=== PATIENT | male | born 1975 | race Caucasian/White ===

== ENCOUNTER 2025-03-23 18:00 | Emergency (ER) | payer MEDICARE ==
--- NOTE | 2025-03-23 18:52 | ERPHSYRPT ---
- History of Present Illness Patient Subjective Stated Complaint: patient dr's office called he had labs drawn today at 13:10 and his potassium was low today they told him to come in. Triage Nursing Assessment: patient was brought to ED by , he walks by self with cane. 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 patient denies any pain at this time. patient says he has jsut been a little more tired and off balance but otherwise reports no other symptoms for the low potassium. Physician History: Hypokalemia, patient was seen in clinic last week and then again today and had labs drawn and he was found to be hypokalemic, he does not have a history of similar episodes, he does not take any type of diuretics, he has had generalized weakness, he denies any N/V/D, denies any chest pain Timing/Duration: day(s) (5) Severity: moderate Associated Symptoms: weakness Allergies/Adverse Reactions: lisinopril Allergy (Verified 03/23/25 18:28) Penicillins Allergy (Verified 03/23/25 18:28) Home Medications: Aspirin 81 gm Chew [Baby Aspirin 81 mg Chew] 1 tab PO DAILY 03/23/25 [History] Atorvastatin Calcium 40 mg PO AC 03/23/25 [History] Baclofen 10 mg [Lioresal 10 mg] 10 mg PO BID 03/23/25 [History] Butalbital/Acetaminophen [Acetaminophn-Butalbital 325-50] 1 each PO BID 03/23/25 [History] Losartan Potassium 50 mg [Cozaar 50 MG] 50 mg PO BID 03/23/25 [History] Methocarbamol [Robaxin] 500 mg PO DAILY 03/23/25 [History] Mirtazapine 30 mg [Remeron 30 mg] 30 mg PO HS 03/23/25 [History] Nicardipine HCl 30 mg PO BID PRN 03/23/25 [History] Nicotine [Nicotine Patch] 1 patch TOP DAILY 03/23/25 [History] Trazodone HCl 50 mg [Desyrel 50 mg] 50 mg PO HS 03/23/25 [History] Hx Tetanus, Diphtheria Vaccination/Date Given: Yes Hx Influenza Vaccination/Date Given: No Hx Pneumococcal Vaccination/Date Given: No Immunizations Up to Date: Yes Travel Risk - International Travel Have you traveled outside of the country in past 3 weeks: No - Emerging Infectious Disease Are you exhibiting symptoms associated with any current EIDs: No - Past Medical History Pertinent Past Medical History: Yes Neurological History: Stroke Cardiac History: Hypertension GI Medical History: Other Other Medical History: g-tube in place - Past Surgical History Past Surgical History: Yes Neuro Surgical History: Other Gastrointestinal: Hernia Repair, Other Musculoskeletal: Orthopedic Surgery Other Surgical History: esophageal stretching,. left shoulder tear repair - Social History Smoking Status: Current some day smoker Drug Use: marijuana - Social Determinants of Health Will the patient participate in the screening: Yes Do you worry about a steady place to live?: No Do you have any problems with any of the following?: No known problems In the past 12 months,have you had to go without utilities?: No Transportation Issues: No Has anyone in your support network made you feel unsafe?: No Have you or anyone in your house had to go w/o enough food: No - Nursing Vital Signs Nursing Vital Signs: Initial Vital Signs Pulse Rate 65 03/23/25 18:00 Respiratory Rate 12 03/23/25 18:00 Blood Pressure 129/63 03/23/25 18:00 O2 Sat by Pulse Oximetry 98 03/23/25 18:00 Pain Scale Pain Intensity 0 - Physical Exam General Appearance: no apparent distress, alert Eye Exam: PERRL/EOMI, eyes nml inspection Ears, Nose, Throat Exam: normal ENT inspection, TMs normal, pharynx normal, moist mucous membranes Neck Exam: normal inspection, non-tender, supple, full range of motion Respiratory Exam: normal breath sounds, lungs clear, No respiratory distress Cardiovascular Exam: regular rate/rhythm, normal heart sounds, normal peripheral pulses Gastrointestinal/Abdomen Exam: soft, normal bowel sounds, other (feeding tube), No tenderness, No mass Back Exam: normal inspection, normal range of motion, No CVA tenderness, No vertebral tenderness Extremity Exam: normal inspection, normal range of motion, pelvis stable Neurologic Exam: alert, oriented x 3, cooperative, normal mood/affect, motor deficits (left sided residual weakness) Skin Exam: normal color, warm, dry, No rash Lymphatic Exam: No adenopathy SpO2 Interpretation: normal SpO2: 98 O2 Delivery: Room Air Ordered Tests: Active Orders 24 hr Category Date Time Status Telemetry q4h Care 03/23/25 18:45 Ordered - Progress Progress Note: 03/23/25 18:51 Labs were done today and were reviewed, patient was given supplemental potassium IV and orally as well as IV fluids - Departure Clinical Impression: Hypokalemia Condition: Stable Critical Care Time: No Referrals: ROWAN FINNEGAN MD [Primary Care Provider, [facility]] - Follow up/PCP as directed
[2025-03-23] MEDS ORDERED: Klor Con ONE (19:15)
[2025-03-23] MEDS ORDERED: POTASSIUM CHLORIDE 20 mEq IN WATER 100ML 100 ML IV ONE (19:16)
[2025-03-23] MEDS: Klor Con PO ONE (19:18)
[2025-03-23] MEDS: POTASSIUM CHLORIDE 20 mEq IN WATER 100ML 20 MEQ/100 ML BAG IV ONE (19:21)
[2025-03-23 21:03] VITALS: BP 187/103; PULSE 70; RESP 21; O2SAT 100
== END 2025-03-23 21:32 | disposition home or self-care (01) ==
LOC: ED 18:00
DX: E87.6 Hypokalemia (principal); R53.1 Weakness; I10 Essential (primary) hypertension; Z79.899 Other long term (current) drug therapy; Z72.0 Tobacco use